=== PATIENT | male | born 1980 | race Caucasian/White ===

== ENCOUNTER 2019-03-23 15:07 | Emergency (ER) | payer SELFPAY ==
[~2019-03-23] VITALS: Ht 167.6 cm; Wt 74.8 kg
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
[2019-03-23] MEDS ORDERED: HYDROCODONE/APAP 5/325MG 1 EACH TABLET ONE (16:00)
[2019-03-23] MEDS ORDERED: ONDANSETRON 4 MG TAB.RAPDIS PO ONE (16:00)
[2019-03-23] MEDS ORDERED: TDAP [DIPH/PERTUSSIS/TET] 0.5 ML VIAL IM ONE ×2 (16:00)
[2019-03-23] MEDS ORDERED: ONDANSETRON 4 MG TAB.RAPDIS ONE (16:00)
[2019-03-23] MEDS ORDERED: HYDROCODONE/APAP 5/325MG 1 EACH TABLET PO ONE (16:00)
--- NOTE | 2019-03-23 18:05 | NUR ---
Patient discharged to home in stable condition. Written and verbal after care instructions given. Patient verbalizes understanding of instruction.
[2019-03-23 18:06] VITALS: BP 130/70
== END 2019-03-23 18:06 | disposition home or self-care (01) ==
LOC: ER 15:15
DX: S02.5XXA Fracture of tooth (traumatic), initial encounter for closed fracture (principal); S01.511A Laceration without foreign body of lip, initial encounter; S40.211A Abrasion of right shoulder, initial encounter; R51 Headache; E11.9 Type 2 diabetes mellitus without complications; W18.09XA Striking against other object with subsequent fall, initial encounter; Y93.89 Activity, other specified; Y92.89 Other specified places as the place of occurrence of the external cause; Y99.8 Other external cause status
CPT/HCPCS: 12001; 70450; 70486; 72125; 73030; 90471; 90715; 99284; A6402 ×2; L0172; Q0162